=== PATIENT | female | born 1950 | race Two or more races ===

== ENCOUNTER → 2017-11-05 | Emergency (ER) | payer OTHER ==
[~2017-11-05] VITALS: Ht 160 cm; Wt 77.1 kg
[~2017-11-05] MED LIST: AVAPRO300 MG; CARTIA XT300 MG; SYNTHROID50 MCG
== END | disposition home or self-care (01) ==
LOC: ER 19:27
DX: K57.32 Diverticulitis of large intestine without perforation or abscess without bleeding (principal)